=== PATIENT | female | born 1990 | race Two or more races ===

== ENCOUNTER 2020-12-14 12:16 | Inpatient (IN) | payer OTHER ==
[~2020-12-14] VITALS: Ht 175.3 cm; Wt 72.7 kg
[2020-12-14] MEDS ORDERED: D5%-LACTATED RINGERS 1,000 ML IV SCH (14:00)
[2020-12-14] MEDS: LACTATED RINGERS 1,000 ML IV SCH ×3 (14:00→16:00)
[2020-12-14] MEDS ORDERED: OXYTOCIN 30U/ 0.9% NaCL 500ML 500 ML IV ONE (14:00)
[2020-12-14] MEDS ORDERED: OXYTOCIN 30U/ 0.9% NaCL 500ML 500 ML IV PRN (14:00)
[2020-12-14] MEDS ORDERED: FENTANYL PF 100 MCG/2ML IV PRN (14:00)
[2020-12-14] MEDS ORDERED: TERBUTALINE 1 MG/ML, 1ML SQ PRN (14:00)
[2020-12-14] MEDS ORDERED: METOCLOPRAMIDE 5 MG/ML, 2ML IVPush PRN (14:00)
[2020-12-14] MEDS ORDERED: ONDANSETRON 2MG/ML, 2ML IVPush PRN ×2 (14:00→16:00)
[2020-12-14] MEDS ORDERED: FENTANYL PF 100 MCG/2ML IVPush PRN (14:00)
[2020-12-14] MEDS ORDERED: CALCIUM CARBONATE 500 MG TAB.CHEW PO PRN (14:00)
[2020-12-14] MEDS ORDERED: SODIUM CITRATE/CITRIC ACID 30 ML UDC PO PRN (14:00)
[2020-12-14] MEDS ORDERED: TERBUTALINE 1 MG/ML, 1ML IVPush PRN (14:00)
[2020-12-14 14:17] LABS: BASOPHILS % (AUTO) 0 % (0-1); EOSINOPHILS % (AUTO) 1 % (1-7); LYMPHOCYTES % (AUTO) 20 % (22-44); MEAN CORPUSCULAR HEMOGLOBIN 33.3 pg (27.0-34.8); MEAN CORPUSCULAR HGB CONC 34.3 g/dL (32.4-35.8); MONOCYTES % (AUTO) 8 % (2-9); NEUTROPHILS % (AUTO) 72 % (42-75); PLATELET COUNT 222 x10^3/uL (130-400); RED BLOOD COUNT 4.47 x10^6/uL (3.82-5.3); RED CELL DISTRIBUTION WIDTH 12.3 % (9.6-15.2)
[2020-12-14] MEDS ORDERED: BUPIVACAINE 0.25% ONE (14:59)
[2020-12-14] MEDS ORDERED: FENTANYL/BUPIV./NS/PF 250 ML EPIDCONT ONE (14:59)
[2020-12-14] MEDS ORDERED: MISOPROSTOL 200 MCG TABLET ONE (15:22)
[2020-12-14] MEDS ORDERED: LIDOCAINE 1%, 20ML ONE (15:22)
[2020-12-14] MEDS ORDERED: NEWBORN KIT ONE (15:22)
[2020-12-14] MEDS ORDERED: NALOXONE 0.4 MG/ML, 1ML IVPush PRN (16:00)
[2020-12-14] MEDS ORDERED: DIPHENHYDRAMINE 50 MG/ML, 1ML IVPush PRN (16:00)
[2020-12-14] MEDS ORDERED: FENTANYL/BUPIV./NS/PF 250 ML EPIDCONT SCH (16:00)
[2020-12-14] MEDS ORDERED: EPHEDRINE 50 MG/ML, 1ML IVPush PRN (16:00)
[2020-12-14] MEDS ORDERED: LACTATED RINGERS 1,000 ML IVBOLUS PRN (16:00)
[2020-12-14 18:51] VITALS: BP 113/78
[2020-12-14] MEDS ORDERED: HYDROcodone/APAP 5/325 TABLET PO PRN ×2 (20:00)
[2020-12-14] MEDS ORDERED: ACETAMINOPHEN 325 MG TABLET PO PRN ×2 (20:00)
[2020-12-14] MEDS ORDERED: RHOGAM FROM BLOOD BANK 1 NOTE EA IM/IV ONE (20:00)
[2020-12-14] MEDS ORDERED: MAGNESIUM HYDROXIDE 8%, 30ML UDC PO PRN (20:00)
[2020-12-14] MEDS ORDERED: MISOPROSTOL 200 MCG TABLET PR PRN (20:00)
[2020-12-14] MEDS: OXYTOCIN 30U/ 0.9% NaCL 500ML 500 ML IV SCH (20:00)
[2020-12-14] MEDS ORDERED: MEASLES,MUMPS&RUBELLA VACC/PF 0.5 ML SQ-VACC PRN (20:00)
[2020-12-14 22:00] VITALS: BP 104/64
[2020-12-15] MEDS: IBUPROFEN 600 MG TABLET PO PRN ×4 (01:50→22:23)
[2020-12-15 01:54] VITALS: BP 102/66
[2020-12-15 05:15] VITALS: BP 97/63
[2020-12-15] MEDS: OXYTOCIN 30U/ 0.9% NaCL 500ML 500 ML IV SCH ×2 (06:00→16:00)
[2020-12-15 06:25] LABS: BASOPHILS % (AUTO) 0 % (0-1); EOSINOPHILS % (AUTO) 1 % (1-7); LYMPHOCYTES % (AUTO) 16 % (22-44); MEAN CORPUSCULAR HEMOGLOBIN 33.1 pg (27.0-34.8); MEAN CORPUSCULAR HGB CONC 34.5 g/dL (32.4-35.8); MEAN PLATELET VOLUME 8.9 fL (7.4-10.4); MONOCYTES % (AUTO) 8 % (2-9); NEUTROPHILS % (AUTO) 75 % (42-75); PLATELET COUNT 193 x10^3/uL (130-400); RED BLOOD COUNT 3.86 x10^6/uL (3.82-5.3); RED CELL DISTRIBUTION WIDTH 12.2 % (9.6-15.2)
[2020-12-15 07:35] VITALS: BP 105/65
[2020-12-15] MEDS: DOCUSATE 100 MG CAPSULE PO PRN ×2 (07:46→22:23)
[2020-12-15] MEDS: PRENATAL VIT/IRON/FA 1 EACH TABLET PO SCH (07:46)
[2020-12-15] MEDS: LACTATED RINGERS 1,000 ML IV SCH ×2 (08:00)
[2020-12-15 11:49] VITALS: BP 99/65
[2020-12-15 20:40] VITALS: BP 111/69
[2020-12-16] MEDS: OXYTOCIN 30U/ 0.9% NaCL 500ML 500 ML IV SCH (02:00)
[2020-12-16 07:15] VITALS: BP 99/68
[2020-12-16] MEDS: PRENATAL VIT/IRON/FA 1 EACH TABLET PO SCH (07:52)
[2020-12-16] MEDS: IBUPROFEN 600 MG TABLET PO PRN (07:53)
[2020-12-16] MEDS ORDERED: SENN-92 PO (08:51)
[2020-12-16] MEDS ORDERED: OXYC1TAB12 PO (08:51)
[2020-12-16] MEDS ORDERED: IBUP-1222 PO (08:51)
== END 2020-12-16 11:21 | disposition home or self-care (01) | DRG 807 ==
LOC: LDOP 12:16 → LDIP 13:40 → 2NW 21:35
PROVIDERS: ADMIT Obstetrics & Gynecology; ATTEND Obstetrics & Gynecology
PROC: 0KQM0ZZ Repair Perineum Muscle, Open Approach (ICD-10-PCS; principal; 2020-12-14)
PROC: 10E0XZZ Delivery of Products of Conception, External Approach (ICD-10-PCS; 2020-12-14)
PROC: 0UQMXZZ Repair Vulva, External Approach (ICD-10-PCS; 2020-12-14)
PROC: 3E0R3BZ Introduction of Anesthetic Agent into Spinal Canal, Percutaneous Approach (ICD-10-PCS; 2020-12-14)
PROC: 00HU33Z Insertion of Infusion Device into Spinal Canal, Percutaneous Approach (ICD-10-PCS; 2020-12-14)
DX: O69.2XX0 Labor and delivery complicated by other cord entanglement, with compression, not applicable or unspecified (principal); Z37.0 Single live birth; O70.1 Second degree perineal laceration during delivery; O71.82 Other specified trauma to perineum and vulva; Z3A.38 38 weeks gestation of pregnancy; Z20.822 Contact with and (suspected) exposure to COVID-19
CPT/HCPCS: 36415; J7121; 85025; 86592; 86850; 86900; 87635; G0378; J3010; J7120